=== PATIENT | female | born 1940 | race Caucasian/White ===

== ENCOUNTER 2023-10-21 06:17 | Emergency (ER) | payer MEDICARE, MEDICAID ==
[~2023-10-21] VITALS: Ht 172.7 cm; Wt 79.4 kg
[2023-10-21] MEDS ORDERED: FLUT1DIS28 IH (06:39)
[2023-10-21] MEDS ORDERED: OLME20TA13 PO (06:39)
[2023-10-21] MEDS ORDERED: HYDR-894 PO (06:39)
[2023-10-21] MEDS ORDERED: FAMO-132 PO (06:39)
[2023-10-21] MEDS ORDERED: CARV12.52 PO (06:39)
[2023-10-21] MEDS ORDERED: NITROGLYCERIN OINT 1 GM PACKET TP ONE (07:01)
[2023-10-21] MEDS ORDERED: ASPIRIN 81 MG TAB.CHEW ONE (07:02)
[2023-10-21] MEDS ORDERED: METOPROLOL SUCCINATE XL 50 MG TAB.SR.24H PO ONE (07:02)
[2023-10-21] MEDS: NITROGLYCERIN OINT 1 GM PACKET TP ONE (07:06)
[2023-10-21] MEDS: ASPIRIN 81 MG TAB.CHEW PO ONE (07:06)
[2023-10-21] MEDS: METOPROLOL TARTRATE 50 MG TABLET PO ONE (07:06)
[2023-10-21 07:36] LABS: BASOPHILS # (AUTO) 0.1 K/UL (0.0-0.2); BASOPHILS % (AUTO) 1.2 % (0.0-2.0); EOSINOPHILS # (AUTO) 0.5 K/uL (0.0-0.7); EOSINOPHILS % (AUTO) 5.1 % (0.0-7.0); HEMATOCRIT 38.5 % (31.2-41.9); HEMOGLOBIN 12.9 g/dL (10.9-14.3); LYMPHOCYTES # (AUTO) 2.1 K/uL (0.8-4.8); LYMPHOCYTES % (AUTO) 23.3 % (20.5-51.5); MEAN CORPUSCULAR HEMOGLOBIN 29.3 uug (24.7-32.8); MEAN CORPUSCULAR HGB CONC 34 g/dL (32.3-35.6); MEAN CORPUSCULAR VOLUME 87.5 fL (75.5-95.3); MONOCYTES # (AUTO) 1.4 K/uL (0.1-1.30); MONOCYTES % (AUTO) 15.1 % (0.0-11.0); NEUTROPHILS % (AUTO) 55.3 % (38.5-71.5); PLATELET COUNT (AUTO) 256 K/uL (179-408); RED CELL DISTRIBUTION WIDTH 13.7 % (12.3-17.7)
[2023-10-21 07:40] LABS: DIFFERENTIAL COMMENT 1
[2023-10-21 07:44] LABS: CALCIUM 8.8 mg/dL (8.5-10.1); CARBON DIOXIDE 23 mmol/L (21-32); CHLORIDE 105 mmol/L (98-107); GLUCOSE 103 mg/dL (74-106); POTASSIUM 3.9 mmol/L (3.5-5.1); SODIUM SERUM 139 mmol/L (136-145); UREA NITROGEN, BLOOD 14 mg/dL (7-18)
[2023-10-21 07:57] LABS: ALANINE AMINOTRANSFERASE 11 U/L (14-59); ALBUMIN 3.6 g/dL (3.4-5.0); ALKALINE PHOSPHATASE 69 U/L (50-136); ASPARTATE AMINOTRANSFERASE 7 U/L (15-37); BILIRUBIN,DIRECT 0.2 mg/dL (0.0-0.2); BILIRUBIN,TOTAL 0.6 mg/dL (0.2-1.0); NT-PRO BNP 382 pg/mL (0-125); TOTAL PROTEIN, SERUM 7.6 g/dL (6.4-8.2)
[2023-10-21 08:12] LABS: BAND % (MANUAL) 1 % (0-10); EOSINOPHILS % (MANUAL) 8 % (0-8); LYMPHOCYTES % (MANUAL) 19 % (20-40); MONOCYTES % (MANUAL) 12 % (2-10); NEUTROPHILS % (MANUAL) 60 % (42-75); PLATELET ESTIMATE ADEQUATE
[2023-10-21] MEDS ORDERED: NITR0.4T48 SL (11:15)
[2023-10-21 11:23] VITALS: BP 136/89; TEMP 98.6; O2SAT 98
== END 2023-10-21 11:24 | disposition left against medical advice (07) ==
LOC: ER 06:24
DX: J20.8 Acute bronchitis due to other specified organisms (principal); I10 Essential (primary) hypertension; M79.642 Pain in left hand; Z79.891 Long term (current) use of opiate analgesic; Z79.899 Other long term (current) drug therapy
CPT/HCPCS: 36415; 70030-TC; 71045; 83735; 84484; 85025; 93005; A4606; A4663

== ENCOUNTER 2025-01-27 01:41 | Emergency (ER) | payer MEDICARE, OTHER ==
[~2025-01-27] VITALS: Ht 162.6 cm; Wt 77.1 kg
[~2025-01-27 01:41] MED LIST: CARV12.52 PO; FAMO-132 PO; FLUT1DIS28 IH; HYDR-894 PO; NITR0.4T48 SL; OLME20TA13 PO
[2025-01-27] MEDS ORDERED: AMIODARONE HCL 150 MG/3 ML VIAL IV ONE ×2 (02:15→02:17)
[2025-01-27] MEDS ORDERED: ASPIRIN 325 MG TABLET ONE (02:16)
[2025-01-27] MEDS ORDERED: NITROGLYCERIN OINT 1 GM PACKET TP ONE (02:16)
[2025-01-27] MEDS ORDERED: ENOXAPARIN SODIUM 80 MG/0.8 ML DISP.SYRIN SQ ONE (02:16)
[2025-01-27] MEDS: ASPIRIN 325 MG TABLET PO ONE (02:44)
[2025-01-27] MEDS: NITROGLYCERIN OINT 1 GM PACKET TP ONE (02:45)
[2025-01-27] MEDS: ENOXAPARIN SODIUM 80 MG/0.8 ML DISP.SYRIN SQ ONE (02:46)
[2025-01-27 02:56] VITALS: BP 153/74
[2025-01-27 02:58] LABS: PLATELET COUNT (AUTO) 271 K/uL (179-408); RED BLOOD CELL COUNT(AUTO) 4.64 MIL/uL (3.63-4.92); RED CELL DISTRIBUTION WIDTH 14.3 % (12.3-17.7); WHITE BLOOD COUNT (AUTO) 10.0 K/uL (3.8-11.8)
[2025-01-27] MEDS: AMIODARONE HCL IV 150 MG in IV DEXTROSE 5% 100 ML IV ONE (03:19)
[2025-01-27] MEDS: AMIODARONE HCL IV 450 MG in IV DEXTROSE 5% 250 ML IV PRN (03:20)
[2025-01-27 03:21] VITALS: BP 141/75; O2SAT 99
== END 2025-01-27 03:22 | disposition left against medical advice (07) ==
LOC: ER 01:52
DX: I48.91 Unspecified atrial fibrillation (principal); I24.89 Other forms of acute ischemic heart disease; I11.9 Hypertensive heart disease without heart failure; Z79.51 Long term (current) use of inhaled steroids; Z79.899 Other long term (current) drug therapy; Z91.013 Allergy to seafood
CPT/HCPCS: 99285; 71045; 85025; 36415; 93005; 96372; J0282 ×2; J1650; A4606; A4663; J7050